=== PATIENT | female | born 1960 | race Caucasian/White ===

== ENCOUNTER 2024-01-24 12:24 | Emergency (ER) | payer OTHER, SELFPAY ==
[2024-01-24 12:27] VITALS: BP 158/87; BMI 57.9
--- NOTE | 2024-01-24 12:51 | ED.GENMED ---
History of Present Illness
General
Chief Complaint: DVT/Possible Blood Clot
Source: patient
Exam Limitations: none
Time Seen by Provider: 01/24/24 12:39
Nursing documentation reviewed up to this point in time: agreed with
Travel History
Have you had any contact with someone who has COVID-19?: No
Do you have any symptoms of coronavirus? Fever > 100 degrees, chills, cough, shortness of breath, sore throat, loss of taste or smell, muscle aches, or headache?: Yes
Symptoms:: covid positive 01/23/24
History of Present Illness
History of Present Illness:
63-year-old female with history of migraines, neuropathy, COPD, DVT, HTN, PE on Xarelto which she states she takes religiously, IDDM, hypothyroid, anemia, depression, recent COVID infection, presents stating yesterday while sitting she developed the
pain behind her left knee that radiates down the back of her lower leg. When she elevated the leg felt better for a while , she states it feels better when she stand(which she cannot do for very long due to medical and weight issues). She denies
chest pain or trouble breathing other than the mild shortness of breath she has since COVID symptoms started 3 days ago.
Past History
Past History
ED Past Medical History: HTN, IDDM (neuropathy), Psychiatric (depression) and Other (PE, DVT)
ED Past Surgical History: Cholecystectomy, Gynecological (hysterectomy), Orthopedic (left knee surgery x2 (meniscus repair, bone fragment removal)) and Other (hernia repair)
Social History
Tobacco: Non-smoker
Drug: None
Personal: Single
Review of Systems
Review of Systems
Allergies reviewed?: Yes
All Other Systems: ROS reviewed and negative except as documented in HPI and ROS
Constitutional: Denies fever
Respiratory: Denies trouble breathing
Cardiac: Denies chest pain
ABD/GI: Denies abdominal pain or nausea
Musculoskeletal: Reports other (Pain behind left knee radiating down lower leg)
Skin: Reports other (chronic stasis color changes both lower extremities)
Neurological: Reports no symptoms
Phy Exam
Physical Exam
Physical Exam:
GENERAL: No acute distress. A&Ox3.
CONSTITUTIONAL: Afebrile.
EYES: Clear. conjunctivae normal
ENMT: moist mucus membranes, Pharynx nl
RESPIRATORY: Regular respirations, nonlabored, lungs clear.
CARDIOVASCULAR: Regular rate and rhythm, no murmurs, no rubs.
GI: Soft, morbidly obese, nontender, normal BS
MUSCULOSKELETAL: Non tender to palpation LLE. No notable swelling, distal n/v intact.
SKIN: Warm, dry, pink. Chronic stasis color changes bilateral LLE
PSYCH: Normal mood and affect. Well kept, interactive and appropriate
NEUROLOGIC: Awake, alert and oriented. No focal neurological deficits
Course
Orders/Labs/Results
Orders:
Orders
01/24/24 13:02
US Periph Venous LOWER Ext LT Urgent
Comment:
Reason For Exam: pain behnd knee and down calf
Vital Signs
Initial and Last Documented VS:
Initial Vital Signs
Temp Resp BP
98.6 F 22 158/87
01/24/24 12:27 01/24/24 12:27 01/24/24 12:27
Last Documented Vital Signs
Temp Pulse Resp BP Pulse Ox
98.6 F 65 22 141/79 97
01/24/24 12:27 01/24/24 12:44 01/24/24 12:27 01/24/24 16:00 01/24/24 12:44
MDM/Problems Addressed
Differential Diagnosis Includes:
Muscular pain, DVT
MDM/Problems Addressed:
63-year-old female with history of migraines, neuropathy, COPD, DVT, HTN, PE on Xarelto which she states she takes religiously, IDDM, hypothyroid, anemia, depression, recent COVID infection, presents stating yesterday while sitting she developed the
pain behind her left knee that radiates down the back of her lower leg. When she elevated the leg felt better for a while , she states it feels better when she stand(which she cannot do for very long due to medical and weight issues). She denies
chest pain or trouble breathing other than the mild shortness of breath she has since COVID symptoms started 3 days ago.
Her left knee is where she had to repairs of meniscus in the past, this may very well be orthopedic as she is morbidly obese
Patient lives alone. Patient has access to a visiting nurse if needed.
01/24/2024 1553 PM
Ultrasound left lower extremity, radiology report read: IMPRESSION:
No evidence of deep venous thrombosis.
Soft tissue edema throughout the calf region.
Pt states her left calf is 'always bigger than the right'
R Mid calf measurement: 49 cm
L mid calf measurement: 48 cm
01/24/2024 1621 PM
Patient states she needs an ambulance ride home. There is no one to come and pick her up.
She is up and dressed and ambulating around the room.
*Critical Care Note
Total Time (30-74mins, 75-104mins- exclusive of procedures): Not Applicable
ED Attending Note
-
Portions of this chart may have been created with voice recognition software.� Occasional wrong word or��sound alike� substitutions may have occurred due to the inherent limitations of voice recognition software.
Discharge Plan
Departure
Patient Disposition: Home (Routine Discharge)
Date of Disposition: 01/24/24
Time of Disposition: 16:01
Patient with high blood pressure during this ER visit?: No
Condition: Fair
Discharge Problem:
Acute pain of left lower extremity
Instructions: Musculoskeletal Pain
Prescriptions:
No Action
Xarelto 20 MG tablet
20 mg PO HS
ropinirole 1 MG tablet
1 mg PO QID
gabapentin 300 MG capsule
600 mg PO DAILY
losartan [Cozaar] 100 MG tablet
100 mg PO DAILY
melatonin 10 MG tablet
10 mg PO HSPRN PRN (Reason: sleep)
Myrbetriq 50 MG tablet extended release 24 hr
50 mg PO DAILY
levothyroxine 25 mcg Tablet
12.5 mcg PO DAILY@07
metformin 1,000 mg Tablet
1,000 mg PO BID
gabapentin 300 mg Capsule
900 mg PO HS
insulin aspart U-100 [Novolog FlexPen U-100 Insulin] 300 UNITS/3 ML insulin pen
25 units SC AC
insulin glargine [Lantus Solostar U-100 Insulin] 300 UNITS/3 ML insulin pen
25 units SC HS
doxycycline hyclate 100 mg Capsule
100 mg PO Q12 7 Days Qty: 14 0RF
Referrals:
Cindy You MD [Family Provider] -
Activity Restrictions/Additional Instructions:
As we discussed, your ultrasound shows no clot.
Interventions
Interventions:
*Risk Screen - Suicide Last Done: 01/24/24 12:27
*General Assessment Last Done: 01/24/24 12:27
*Neglect/Abuse Screening Last Done: 01/24/24 12:27
ED- Fall Risk Assessment Last Done: 01/24/24 12:40
*ED COVID-19 Vaccine History Last Done: 01/24/24 12:27
*Nursing Disposition Last Done: 01/24/24 18:24
ED- Cardiac Assessment Last Done: 01/24/24 12:40
ED- Pulmonary Assessment Last Done: 01/24/24 12:40
ED-Peripheral Vascular Assessment Last Done: 01/24/24 12:40
ED-Skin Assessment Last Done: 01/24/24 12:40
Discharge Date and Time
Discharge Date/Time: 01/24/24 18:25
[2024-01-24 13:06] VITALS: BP 142/77
[2024-01-24 15:27] VITALS: BP 139/71
[2024-01-24 16:00] VITALS: BP 141/79
== END 2024-01-24 18:25 | disposition home or self-care (01) ==
LOC: EMR 12:24
PROVIDERS: EMERGENCY PHYSICIAN Emergency Medicine; FAMILY PHYSICIAN Internal Medicine
DX: M79.662 Pain in left lower leg (principal); D64.9 Anemia, unspecified; J44.9 Chronic obstructive pulmonary disease, unspecified; I10 Essential (primary) hypertension; E11.40 Type 2 diabetes mellitus with diabetic neuropathy, unspecified; E03.9 Hypothyroidism, unspecified; F32.A Depression, unspecified; U07.1 COVID-19; Z79.01 Long term (current) use of anticoagulants; Z79.4 Long term (current) use of insulin; Z86.718 Personal history of other venous thrombosis and embolism; Z90.49 Acquired absence of other specified parts of digestive tract; Z90.710 Acquired absence of both cervix and uterus
CPT/HCPCS: 99284; 93971